=== PATIENT | female | born 1935 | race Caucasian/White ===

== ENCOUNTER → 2017-01-15 | Outpatient (CLI) | payer OTHER, MEDICARE ==
[~2017-01-15] VITALS: Ht 157.5 cm; Wt 72.8 kg
[~2017-01-15] MED LIST: AMBIEN 5 MG TABL5 M1 PO; ATIVAN0.5 MG PO; COZAAR 25 MG TA25 M1 PO; HUMULIN 70100 UNIT/3 SQ; LANTUS100 UNIT/M SUBQ; LEVOTHYROXIN0.075 MG PO; NORVASC10 MG PO; TRAMADOL 50 MG50 MG PO; VOLTAREN GEL 1100 G2 TOP; ZOCOR20 MG PO
--- NOTE | ~2017-01-15 | HPC ---
[facility] [place] [address] PAIN MANAGEMENT CONSULTATION Name: JACKIE BOND [facility] #[facility] [id number] Admission: 01/15/17 Attend Phys: Dennis Lino DO Discharge: Date of : 37 Report #: [id number] THIS REPORT FOR: //name// CC: Champ Lion The patient is an 81-year-old female, prior seen in the pain clinic 06/12/2016, we did a right SI joint injection at that time. She somewhat lost to follow up. The patient presents to the pain clinic today noting she had recurrent back pain. Apparently, she was seen at another pain clinic. It sound like she had a "right groin" injection on 10/02/2016, back injection question lumbar epidural steroid injection (October 14) and some kind of trigger point question injection in October. She was referred back to our clinic after being seen by Dr. Leland Choudhary, complaining of ongoing pain, right leg "severe" in the groin. Dr. Choudhary had suggested we move forward with selective nerve root blocks at L2 and L3. If symptoms persist with transient relief following those injections, consider foraminotomies at these levels. The patient presents to the pain clinic today noting pain, primarily right hip and groin, anterior thigh, exacerbated with standing and walking, present for greater than a year. She rates the pain about 3/10 at present, but notes it is exacerbated with any and all movement. PHYSICAL EXAMINATION: Shows an 81-year-old female, BMI is 29.3 kilograms per meter squared. Vital signs stable. Lower extremity strength is actually fairly symmetric to hip flexion, lower extremity extension and dorsiflexion both legs about 4/5. Pain is described more in the L3 distribution. Today after discussion, we have elected to move forward with a right L3 selective nerve root block and in 1-2 weeks, we will proceed with a right L2 selective nerve root block to see which injection afforded a little better relief. ASSESSMENT: Symptomatic lumbar radiculopathy in a patient with chronic pain syndrome, history of sacroiliac joint dysfunction. PROCEDURE: Right selective nerve root block L3. PROCEDURE NOTE: After written informed consent was obtained, the patient was taken to the fluoroscopy suite, placed in the prone position. After sterile prep and drape, the L3-L4 interspace was identified. C-arm was turned obliquely to the right. The right L3-L4 neural foramen was noted. After sterile prep and drape, skin wheal was raised and a 22-gauge 4-1/2 inch epidural Tuohy needle was placed targeting the superior aspect of the neural foramen. Immediately lateral to the neural foramen, a slight paresthesia was noted. Needle was withdrawn approximately 1 mm. Negative aspiration was accomplished, 1 mL of Omnipaque was injected, which showed spread along the nerve root. This was followed with [address] [address] PAIN MANAGEMENT CONSULTATION Name: JACKIE BOND Marbella Room #: REG ANSHUL Zamarripa#: [id number] Admission: 01/15/17 Attend Phys: Dennis Lino DO Discharge: Date of : 37 Report #: [id number] mg of triamcinolone plus 1 mL of 0.5% preservative-free bupivacaine. Needle was removed. The area was cleansed, Band-Aids applied. The patient was allowed to ambulate to recovery room, monitored for an appropriate period of time, and discharged in good and stable condition noting "incremental" improvement of baseline pain. She was told to keep "pain score" for the next several hours. Follow up in 1-2 weeks for reevaluation. <ELECTRONICALLY SIGNED> By: Dennis Lino DO 01/18/17 [id number] [id number] Dennis Lino DO /nt
[2017-01-15 12:57] VITALS: BP 118/72
== END ==
LOC: PAIN 07:25
DX: M54.16 Radiculopathy, lumbar region (principal); M53.3 Sacrococcygeal disorders, not elsewhere classified; G89.4 Chronic pain syndrome; I10 Essential (primary) hypertension

== ENCOUNTER → 2017-02-22 | Outpatient (CLI) | payer OTHER, MEDICARE ==
[~2017-02-22] VITALS: Ht 157.5 cm; Wt 69.9 kg
--- NOTE | ~2017-02-22 | HPC ---
[facility] [place] [address] PAIN MANAGEMENT CONSULTATION Name: JACKIE BOND Room #: REG [facility]#: [id number] Admission: 02/22/17 Attend Phys: Dennis Lino DO Discharge: Date of : 37 Report #: [id number] THIS REPORT FOR: //name// CC: Champ Lino DATE OF SERVICE: 02/22/2017 The patient is an 81-year-old female, prior seen in the pain clinic 01/29/2017. She had been referred back to the pain clinic earlier this year by Dr. Leland Choudhary, requesting that we do selective nerve root blocks on the right at L2 and L3. The right selective nerve root block at L3 was done on 01/15/2017 with about 50% improvement of baseline pain, the right L2 selective nerve root block done 01/29/2017 with really no improvement of symptoms. The patient returns to pain clinic today. She has ongoing pain in right low back radiating around to the anterior thigh to above the knee. She notes the pain is exacerbated with standing, walking and bending, present for about a year. PHYSICAL EXAMINATION: Shows 81-year-old female, BMI is 28.2 kilograms per meter squared. Blood pressure is 125/77, pulse 80s, respirations are 14. Rises from chair using armrest, modestly antalgic gait. Right hip flexion, lower extremity extension strength is modestly diminished, patellar reflexes slightly diminished straight leg raise is actually equivocal. 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 ASSESSMENT: Symptomatic lumbar radiculopathy with primarily right L3 radicular pain pattern, a good relief with right L3 selective nerve root block. Today, we have elected to proceed with the midline L3-L4 epidural injection to help with ongoing radicular pain suggest patient follow up with Dr. Leland Choudhary for consideration for more definitive intervention (right L3-L4 foraminotomy). PROCEDURE PERFORMED: Lumbar epidural injection under fluoroscopy. PROCEDURE NOTE: After both written and informed consent to include risk of spinal cord damage, increased pain, weakness and dural puncture, the patient was taken to the fluoroscopy suite, placed in the prone position. After sterile prep and drape, a skin wheal with lidocaine was raised. A 22-gauge epidural Tuohy needle was inserted in the midline at L3-L4 with good loss to resistance. Negative aspiration for cerebrospinal fluid or blood was noted. Then 1 mL of Omnipaque under biplanar fluoroscopy showed good spread within the epidural space. This was followed with 80 mg of triamcinolone plus 1 mL of 1.5% preservative-free Xylocaine, 0.5 mL Xylocaine was then injected to flush the [facility] [address] [place] [address] PAIN MANAGEMENT CONSULTATION Name: JACKIE BOND Room #: REG CLJustin Zamarripa#: [id number] Admission: 02/22/17 Attend Phys: Dennis Lino DO Discharge: Date of : 37 Report #: [id number] needle; it was removed. The patient was monitored for an appropriate period of time and discharged in good and stable condition. <ELECTRONICALLY SIGNED> By: Dennis Lino DO 02/24/17 0859 [id number] [id number] Dennis Lino DO /nt
[2017-02-22 12:23] VITALS: BP 125/77
== END | disposition home or self-care (01) ==
LOC: PAIN 06:10
DX: M54.16 Radiculopathy, lumbar region (principal)